=== PATIENT | female | born 1990 | race Caucasian/White ===

== ENCOUNTER → 2020-06-01 | Outpatient (CLI) | payer SELFPAY | LOC: M LABSMTC 10:17 | PROVIDERS: ATTEND Pediatrics | DX: Z20.822 Contact with and (suspected) exposure to COVID-19 (principal) ==

== ENCOUNTER → 2021-03-27 | Outpatient (REF) | payer BC | LOC: M PLALAB 09:35 | PROVIDERS: ATTEND Advanced Practice Midwife | DX: R10.2 Pelvic and perineal pain (principal); Z12.4 Encounter for screening for malignant neoplasm of cervix ==

== ENCOUNTER → 2021-05-26 | Outpatient (CLI) | payer BC | LOC: M WHC 10:07 | PROVIDERS: ATTEND Advanced Practice Midwife | DX: R10.2 Pelvic and perineal pain (principal) ==

== ENCOUNTER → 2021-08-11 | Outpatient (CLI) | payer BC | LOC: M WHC 14:03 | PROVIDERS: ATTEND Advanced Practice Midwife | DX: N70.11 Chronic salpingitis (principal) ==

== ENCOUNTER → 2021-09-08 | Outpatient (CLI) | payer BC ==
[2021-09-08 13:12] LABS: HEMOGLOBIN 12.3 g/dl (12.0-15.5); MEAN CORPUSCULAR HGB CONC 32.4 g/dl (32.0-36.5); MEAN CORPUSCULAR VOLUME 89.6 fl (80.0-96.0); PLATELET COUNT, AUTOMATED 309 10^3/uL (150-450); RED BLOOD COUNT 4.24 10^6/uL (4.00-5.40); WHITE BLOOD COUNT 5.9 10^3/uL (4.0-10.0)
[2021-09-08 13:35] LABS: ALBUMIN 3.3 GM/DL (3.2-5.2); ALT/SGPT 37 U/L (12-78); BILIRUBIN,TOTAL 0.3 MG/DL (0.2-1.0); BLOOD UREA NITROGEN 12 MG/DL (7-18); CALCIUM LEVEL 9.4 MG/DL (8.5-10.1); CARBON DIOXIDE LEVEL 26 MEQ/L (21-32); CHLORIDE LEVEL 107 MEQ/L (98-107); CHOLESTEROL LEVEL 184 MG/DL (<200); CHOLESTEROL RISK RATIO 2.139 (<5); CREATININE FOR GFR 0.83 MG/DL (0.55-1.30); GLOMERULAR FILTRATION RATE > 60.0 (>60); GLUCOSE, FASTING 236 MG/DL (70-100); HDL CHOLESTEROL 86 MG/DL (>40); LDL CHOLESTEROL 73 MG/DL (<100); NON-HDL-C 98 MG/DL; POTASSIUM SERUM 4.6 MEQ/L (3.5-5.1); SODIUM LEVEL 139 MEQ/L (136-145); TOTAL PROTEIN 6.7 GM/DL (6.4-8.2); TRIGLYCERIDES LEVEL 123 MG/DL (<150)
[2021-09-08 13:45] LABS: MALB URINE SIEMENS 10.9 MG/L; MAU/CREAT RATIO 9.3 MCG/MG (0.0-30.0)
== END ==
LOC: M PLALAB 11:23
PROVIDERS: ATTEND Internal Medicine Endocrinology, Diabetes & Metabolism
DX: E10.9 Type 1 diabetes mellitus without complications (principal)

== ENCOUNTER → 2021-09-08 | Outpatient (CLI) | payer BC ==
[2021-09-08 14:49] LABS: HEPATITIS C VIRUS ABY INDEX 0.1 INDEX (<0.8); HIV 1&2 SCREEN CENTAUR NEGATIVE (NEGATIVE)
== END ==
LOC: M PLALAB 11:25
PROVIDERS: ATTEND Advanced Practice Midwife
DX: R10.2 Pelvic and perineal pain (principal)

== ENCOUNTER 2021-12-12 10:12 | Day surgery (SDC) | payer BC ==
[~2021-12-12] VITALS: Ht 162.6 cm; Wt 63.0 kg
[~2021-12-12 10:12] MED LIST: DEXC1MIS3; JARD1TAB; SPRI28TA; TRES100I SQ; [UNRECOGNIZED DRUG - CODE]
[2021-12-12 10:45] LABS: HEMATOCRIT 44.4 % (36.0-47.0); HEMOGLOBIN 14.1 g/dl (12.0-15.5); MEAN CORPUSCULAR HEMOGLOBIN 28.7 pg (27.0-33.0); MEAN CORPUSCULAR HGB CONC 31.8 g/dl (32.0-36.5); MEAN CORPUSCULAR VOLUME 90.4 fl (80.0-96.0); PLATELET COUNT, AUTOMATED 284 10^3/uL (150-450); RED BLOOD COUNT 4.91 10^6/uL (4.00-5.40); WHITE BLOOD COUNT 5.9 10^3/uL (4.0-10.0)
[2021-12-12] MEDS ORDERED: SUGAMMADEX SODIUM 500 MG/5 ML VIAL (BRIDION) As Ordered ONE (12:14)
[2021-12-12] MEDS ORDERED: ONDANSETRON 4MG 2ML VIAL As Ordered ONE (12:14)
[2021-12-12] MEDS ORDERED: fentaNYL 100 MCG/2 ML INJECTION As Ordered ONE ×3 (12:14→12:47)
[2021-12-12] MEDS ORDERED: KETOROLAC 60MG 2ML VIAL As Ordered ONE (12:14)
[2021-12-12] MEDS ORDERED: dexameTHASONE 4 MG/ML 1ML VIAL (J1100 PER 1MG) As Ordered ONE (12:14)
[2021-12-12] MEDS ORDERED: METOCLOPRAMIDE INJ 10MG/2ML VIAL (J2765 PER 1) As Ordered ONE (12:14)
[2021-12-12] MEDS ORDERED: LIDOCAINE 2% 100MG/5ML SDV (FOR ANES.) As Ordered ONE (12:14)
[2021-12-12] MEDS ORDERED: propofoL 200 MG/20 ML VIAL As Ordered ONE (12:14)
[2021-12-12] MEDS ORDERED: ROCURONIUM BROMIDE 50 MG/5 ML VIAL As Ordered ONE (12:14)
[2021-12-12] MEDS ORDERED: MIDAZOLAM INJ 2MG/2ML VIAL (J2250 PER 1MG) As Ordered ONE (12:14)
[2021-12-12] MEDS ORDERED: ACETAMINOPHEN 1000MG 100ML IV BTL (OFIRMEV) (J0131 PER 10MG) As Ordered ONE (12:16)
[2021-12-12] MEDS: BUPIVACAINE HCL 0.25% 30ML VIAL As Ordered ONE ×2 (13:00→13:02)
[2021-12-12] MEDS ORDERED: oxyCODONE 5MG TAB PO PRN (13:05)
[2021-12-12] MEDS ORDERED: INSULIN LISPRO (NovoLOG) PER UNIT SC PRN (13:05)
[2021-12-12] MEDS ORDERED: LR 1,000 ML IV SCH (13:05)
[2021-12-12] MEDS ORDERED: ONDANSETRON 4MG 2ML VIAL IV PRN (13:05)
[2021-12-12] MEDS: fentaNYL 100 MCG/2 ML INJECTION IV PRN ×2 (13:24→13:47)
[2021-12-12 14:45] VITALS: BP 132/74
== END 2021-12-12 14:48 | disposition home or self-care (01) ==
LOC: M SDC 10:12
PROVIDERS: ATTEND Obstetrics & Gynecology
DX: N70.11 Chronic salpingitis (principal); E10.9 Type 1 diabetes mellitus without complications; Z79.899 Other long term (current) drug therapy; Z79.4 Long term (current) use of insulin; Z79.84 Long term (current) use of oral hypoglycemic drugs; Z79.3 Long term (current) use of hormonal contraceptives
CPT/HCPCS: 36415; 49320; 81025; 85027; 86850; 86900; 86901; J0131; J1100; J1885; J2250; J2405; J2765; J3010

== ENCOUNTER 2022-02-27 12:01 | Emergency (ER) | payer BC ==
[~2022-02-27] VITALS: Ht 162.6 cm; Wt 63.7 kg
[2022-02-27 12:01] VITALS: BP 135/86
[2022-02-27] MEDS ORDERED: KETOROLAC 30 MG/ML 1ML VIAL IV ONE (17:55)
[2022-02-27] MEDS ORDERED: NS 1,000 ML IV ONE (18:00)
[2022-02-27] MEDS ORDERED: ISOVUE-370 76% 100ML VIAL As Ordered ONE (19:00)
[2022-02-27 19:05] LABS: BASO # 0.1 10^3/uL (0.0-0.2); BASO % 0.7 % (0.0-1.0); EOS % 0.4 % (0.0-3.0); HEMATOCRIT 42.8 % (36.0-47.0); HEMOGLOBIN 13.9 g/dl (12.0-15.5); LYMPH # 2.3 10^3/uL (1.5-5.0); LYMPH % 31.3 % (24.0-44.0); MEAN CORPUSCULAR HEMOGLOBIN 29.5 pg (27.0-33.0); MEAN CORPUSCULAR HGB CONC 32.5 g/dl (32.0-36.5); MEAN CORPUSCULAR VOLUME 90.9 fl (80.0-96.0); MONO # 0.5 10^3/uL (0.0-0.8); MONO % 6.1 % (2.0-8.0); NEUTROPHILS # 4.5 10^3/uL (1.5-8.5); NEUTROPHILS % 61.2 % (36.0-66.0); PLATELET COUNT, AUTOMATED 338 10^3/uL (150-450); RED BLOOD COUNT 4.71 10^6/uL (4.00-5.40); WHITE BLOOD COUNT 7.3 10^3/uL (4.0-10.0)
[2022-02-27 19:39] LABS: ALBUMIN 3.7 GM/DL (3.2-5.2); BILIRUBIN,DIRECT 0.2 MG/DL (0.0-0.2); BILIRUBIN,TOTAL 0.8 MG/DL (0.2-1.0); TOTAL PROTEIN 7.2 GM/DL (6.4-8.2)
[2022-02-27] MEDS ORDERED: KETO10TAB PO (20:03)
[2022-02-27] MEDS ORDERED: DICY10CA13 PO (20:03)
[2022-02-27 20:19] LABS: C REACTIVE PROTEIN QUANTITATIV 0.34 MG/DL (0.00-0.30)
[2022-02-27 20:40] LABS: ERYTHROCYTE SEDIMENTATION RATE 2 mm/hr (0-20)
== END 2022-02-27 20:22 | disposition home or self-care (01) ==
LOC: M ED 12:01
DX: R10.31 Right lower quadrant pain (principal); G89.29 Other chronic pain; E10.9 Type 1 diabetes mellitus without complications; Z79.3 Long term (current) use of hormonal contraceptives; Z79.84 Long term (current) use of oral hypoglycemic drugs; Z79.4 Long term (current) use of insulin
CPT/HCPCS: 74177; 76830; 76856; 80047; 82248; 83690; 84702; 85025; 85652; 86140; 93976; 96374; 99283; J1885; Q9967

== ENCOUNTER → 2024-10-20 | Outpatient (CLI) | payer OTHER ==
[~2024-10-20] MED LIST changes: +DICY-61 PO; +KETO10TAB PO
[2024-10-20 14:02] LABS: BASO % 0.6 % (0.0-1.0); EOS % 0.6 % (0.0-3.0); HEMATOCRIT 40.3 % (36.0-47.0); HEMOGLOBIN 12.7 g/dl (12.0-15.5); LYMPH % 27.2 % (24.0-44.0); MEAN CORPUSCULAR HEMOGLOBIN 28.5 pg (27.0-33.0); MEAN CORPUSCULAR HGB CONC 31.5 g/dl (32.0-36.5); MEAN CORPUSCULAR VOLUME 90.6 fl (80.0-96.0); MONO # 0.4 10^3/uL (0.0-0.8); MONO % 5.8 % (2.0-8.0); NEUTROPHILS # 4.7 10^3/uL (1.5-8.5); NEUTROPHILS % 65.5 % (36.0-66.0); PLATELET COUNT, AUTOMATED 345 10^3/uL (150-450); RED BLOOD COUNT 4.45 10^6/uL (4.00-5.40); WHITE BLOOD COUNT 7.2 10^3/uL (4.0-10.0)
[2024-10-20 14:08] LABS: ERYTHROCYTE SEDIMENTATION RATE 7 mm/hr (0-20)
[2024-10-20 14:19] LABS: ALBUMIN 3.7 G/DL (3.2-5.2); ALKALINE PHOSPHATASE 45 U/L (35-104); ALT/SGPT 14 U/L (7.0-40); AST/SGOT 11 U/L (<34); BILIRUBIN,TOTAL 0.5 MG/DL (0.3-1.2); BLOOD UREA NITROGEN 12 MG/DL (9-23); CARBON DIOXIDE LEVEL 25 MMOL/L (20-31); CHLORIDE LEVEL 105 MMOL/L (98-107); CREATININE FOR GFR 0.68 MG/DL (0.55-1.30); GLOMERULAR FILTRATION RATE > 90.0 (>60); GLUCOSE, FASTING 213 MG/DL (60-100); POTASSIUM SERUM 4.6 MMOL/L (3.5-5.1); RHEUMATOID FACTOR QUANT < 3.5 IU/ML (<14); SODIUM LEVEL 139 MMOL/L (136-145); TOTAL PROTEIN 6.5 G/DL (5.7-8.2)
[2024-10-20 14:21] LABS: FOLATE 17.8 NG/ML (>5.4); FREE THYROXINE INDEX 2.5 % (1.3-4.8); T UPTAKE 29.1 % (22.5-37.0); THYROXINE (T4) 8.5 UG/DL (4.5-10.9); VITAMIN B12 LEVEL 633 PG/ML (211-911)
[2024-10-20 14:23] LABS: HEMOGLOBIN A1c 6.5 % (4.0-6.0)
[2024-10-21 09:33] LABS: T P ELECTROPHORESIS SO 6.5 g/dL (6.1-8.1)
[2024-10-23 18:48] LABS: ANA PATTERN Nuclear, Speckled (NEGATIVE); ANA SCREEN, IFA POSITIVE (NEGATIVE); ANA TITER 1:40 titer (<1:40)
[2024-10-24 06:44] LABS: ALPHA-1-GLOBULINS SO 0.3 g/dL (0.2-0.3); ALPHA-2-GLOBULINS SO 0.5 g/dL (0.5-0.9); BETA 2 GLOBULIN 0.3 g/dL (0.2-0.5); BETA-GLOBULIN SO 0.5 g/dL (0.4-0.6)
[2024-10-24 20:23] LABS: VITAMIN E(GAMMA TOCOPHEROL) < 1.0 mg/L (<=4.3)
[2024-10-27 13:49] LABS: VITAMIN B1 LEVEL WHOLE BLOOD 94 nmol/L (78-185)
[2024-10-29 18:08] LABS: VITAMIN B6,PYRIDOXAL PHOSPHATE 19.1 ng/mL (2.1-21.7)
== END ==
LOC: M PLALAB 09:27
PROVIDERS: ATTEND Psychiatry & Neurology Neurology
DX: E11.40 Type 2 diabetes mellitus with diabetic neuropathy, unspecified (principal); E07.9 Disorder of thyroid, unspecified; E53.8 Deficiency of other specified B group vitamins; O09.91 Supervision of high risk pregnancy, unspecified, first trimester

== ENCOUNTER 2025-04-17 14:12 | Outpatient (CLI) | payer OTHER ==
[~2025-04-17] VITALS: Ht 162.6 cm; Wt 77.6 kg
[2025-04-17 14:32] VITALS: BP 112/70
[2025-04-17] MEDS ORDERED: ACET500P3 PO (14:42)
[2025-04-17] MEDS ORDERED: CELE20TA PO (14:42)
[2025-04-17] MEDS ORDERED: NOVOINJ SC (14:42)
[2025-04-17] MEDS ORDERED: ASPI81CH33 PO (14:42)
[2025-04-17] MEDS ORDERED: PRENTAB9 PO (14:42)
== END 2025-04-17 15:40 | disposition home or self-care (01) ==
LOC: M LDO 14:12
PROVIDERS: ATTEND Advanced Practice Midwife
DX: O26.893 Other specified pregnancy related conditions, third trimester (principal); O24.013 Pre-existing type 1 diabetes mellitus, in pregnancy, third trimester; O09.513 Supervision of elderly primigravida, third trimester; E10.9 Type 1 diabetes mellitus without complications; R10.10 Upper abdominal pain, unspecified; Z79.4 Long term (current) use of insulin; Z3A.31 31 weeks gestation of pregnancy
CPT/HCPCS: 59025; G0463